=== PATIENT | female | born 1955 | race Caucasian/White ===

== ENCOUNTER 2017-06-22 23:24 | Emergency (ER) | payer BC ==
--- NOTE | 2017-06-23 00:20 | RADIOLOGY REPORT (SQ) ---
EXAM DESCRIPTION: ELBOW LEFT OVER 2 VIEWS CLINICAL HISTORY: 62 years, Female, pain COMPARISON: None. NUMBER OF VIEWS: 4 Findings: Moderate soft tissue swelling medially. Bones, joints, and soft tissues of ELBOW LEFT 4VIEWS appear otherwise intact. No significant effusion. IMPRESSION: Moderate swelling.
--- NOTE | 2017-06-23 00:20 | RADIOLOGY REPORT (SQ) ---
EXAM DESCRIPTION: SHOULDER LEFT 2 OR MORE VIEWS CLINICAL HISTORY: 62 years, Female, pain COMPARISON: None. NUMBER OF VIEWS: 3 Findings: Bones, joints, and soft tissues of SHOULDER LEFT 3VIEWS appear intact. No significant effusion. IMPRESSION: No acute findings.
[2017-06-23] MEDS ORDERED: HYDROCODONE/ACETAMINOPHEN 5-325 MG TABLET PO ONE (00:33)
[2017-06-23] MEDS ORDERED: IBUPROFEN 400 MG TABLET PO ONE (00:33)
--- NOTE | 2017-06-23 00:40 | ER Document Report ---
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 She lost her balance and fell landing on her left elbow and shoulder. Associated Symptoms: None Exacerbated by: Movement Relieved by: Denies Similar symptoms previously: No Recently seen / treated by doctor: No - ROS ROS below otherwise negative: Yes Systems Reviewed and Negative: Yes All other systems reviewed and negative - NEURO Neurology: DENIES: Headache - CARDIOVASCULAR Cardiovascular: DENIES: Chest pain - RESPIRATORY Respiratory: DENIES: Trouble Breathing - MUSCULOSKELETAL Musculoskeletal: REPORTS: Extremity pain - Left arm Past Medical History - General Information source: Patient - Social History Smoking Status: Never Smoker Chew tobacco use (# tins/day): No Frequency of alcohol use: Occasional Drug Abuse: None Lives with: Spouse/Significant other Family History: Reviewed & Not Pertinent Patient has suicidal ideation: No Patient has homicidal ideation: No Endocrine Medical History: Reports: Hx Hypothyroidism GI Medical History: Reports: Hx Gastroesophageal Reflux Disease Past Surgical History: Reports: Hx Thyroid Surgery - Immunizations Immunizations up to date: Yes Vertical Provider Document - CONSTITUTIONAL Agree With Documented VS: Yes Exam Limitations: No Limitations General Appearance: WD/WN, No Apparent Distress - HEENT HEENT: Atraumatic, Normocephalic - RESPIRATORY Respiratory: Breath Sounds Normal, No Respiratory Distress - CARDIOVASCULAR Cardiovascular: Regular Rate, Regular Rhythm - MUSCULOSKELETAL/EXTREMETIES Musculoskeletal/Extremeties: Tender, Edema. negative: Eccymosis Notes: Left elbow with tenderness and edema. 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 Decreased range of motion. Left shoulder is nontender to palpation. Neuro vascular and sensation is intact to left extremity - NEURO Level of Consciousness: Awake, Alert, Appropriate - DERM Integumentary: Warm, Dry Course - Re-evaluation Re-evalutation: 06/23/17 00:38 Shoulder and elbow x-ray were negative for fracture and this was discussed with the patient. Elbow x-ray does show soft tissue swelling. - Vital Signs Vital signs: Temp Pulse Resp BP Pulse Ox 98.2 F 80 20 129/98 H 99 06/22/17 23:29 06/22/17 23:29 04/13/18 23:29 06/22/17 23:29 06/22/17 23:29 Procedures - Immobilization Left Arm Pre-Proc Neuro Vasc Exam: Normal Immobilizer type: Sling Performed by: RN Post-Proc Neuro Vasc Exam: Normal Alignment checked and good: Yes Discharge - Discharge Clinical Impression: Left elbow contusion Qualifiers: Encounter type: initial encounter Qualified Code(s): S50.02XA - Contusion of left elbow, initial encounter Contusion of left shoulder Qualifiers: Encounter type: initial encounter Qualified Code(s): S40.012A - Contusion of left shoulder, initial encounter Fall with injury Qualifiers: Encounter type: initial encounter Qualified Code(s): W19.XXXA - Unspecified fall, initial encounter Condition: Good Disposition: HOME, SELF-CARE Additional Instructions: Ice and elevate left arm Ibuprofen every 8 hours as needed for pain Wear arm sling for support when up and moving around follow up with your primary care physician on return home for recheck Return if symptoms worsen and as needed Prescriptions: Hydrocodone/Acetaminophen [[place] 5-325 mg Tablet] 1 tab PO PRN PRN #10 tablet PRN Reason: Ibuprofen 600 mg PO TID PRN #15 tablet PRN Reason:
[2017-06-23 01:18] VITALS: BP 131/75
== END 2017-06-23 01:17 | disposition home or self-care (01) ==
LOC: ER 23:24
DX: S50.02XA Contusion of left elbow, initial encounter (principal); S40.012A Contusion of left shoulder, initial encounter; M25.522 Pain in left elbow; M25.512 Pain in left shoulder; W19.XXXA Unspecified fall, initial encounter
CPT/HCPCS: 99283; 73080; 73030; J3490